=== PATIENT | female | born 1940 | race Caucasian/White ===

== ENCOUNTER 2019-02-14 05:44 | Day surgery (SDC) | payer MEDICARE, OTHER, MEDICAID ==
[2019-02-14] VITALS (12 sets, daily range): BP systolic 133–175; BP diastolic 60–88
[~2019-02-14] VITALS: Ht 165.1 cm; Wt 100.0 kg
[2019-02-14] MEDS ORDERED: MORP60TA77 PO (06:23)
[2019-02-14] MEDS ORDERED: diltiazem PO (06:28)
[2019-02-14] MEDS ORDERED: morphine PO (06:31)
[2019-02-14] MEDS ORDERED: lactulose PO (06:32)
[2019-02-14] MEDS ORDERED: zofran PO (06:33)
[2019-02-14] MEDS ORDERED: diphenhydrAMINE 50 mg/ml inj ONE (06:55)
[2019-02-14] MEDS ORDERED: MIDAZolam 5mg/5ml vial ONE ×2 (06:55→08:38)
[2019-02-14] MEDS ORDERED: fentaNYL/PF 50MCG/1 ML 2ML syringe ONE ×2 (06:55→08:38)
[2019-02-14] MEDS ORDERED: LIDOcaine Viscous 15ml cup ONE (06:56)
[2019-02-14] MEDS ORDERED: glucagon, human recombinant 1mg kit ONE (06:56)
[2019-02-14] MEDS ORDERED: iohexol 300 MG/1 ML 50ml polymer ONE ×3 (06:56→08:37)
[2019-02-14] MEDS ORDERED: levoFLOXACIN-Levaquin 500mg/D5 100 ML IV ONE (08:03)
[2019-02-14 10:04] LABS: BASOPHILS % (AUTO) 0.6 % (0-1); EOSINOPHILS # (AUTO) 0.1 X10'3 (0-0.9); EOSINOPHILS % (AUTO) 0.8 % (0-6); HEMOGLOBIN 10.8 g/dl (12.0-16.0); LYMPHOCYTES # (AUTO) 0.8 X10'3 (1.1-4.8); LYMPHOCYTES % (AUTO) 11.7 % (21-51); MEAN CORPUSCULAR HEMOGLOBIN 27.1 PG (27.0-31.0); MEAN CORPUSCULAR HGB CONC 32.8 g/dL (33.0-36.5); MEAN CORPUSCULAR VOLUME 82.6 FL (78-98); MEAN PLATELET VOLUME 8.4 FL (7.4-10.4); MONOCYTES # (AUTO) 0.5 X10'3 (0-0.9); MONOCYTES % (AUTO) 7.6 % (2-12); NEUTROPHILS # (AUTO) 5.1 X10'3 (1.8-7.7); NEUTROPHILS % (AUTO) 79.3 % (42-75); PLATELET COUNT 201 X10'3 (140-440); RED BLOOD COUNT 3.99 X10'6 (4.20-5.60); WHITE BLOOD COUNT 6.4 X10'3 (4.5-11.0)
[2019-02-14 10:16] LABS: ALANINE AMINOTRANSFERASE 24 U/L (12-78); ALBUMIN 2.5 G/DL (3.4-5.0); ALBUMIN/GLOBULIN RATIO 0.7 (1.1-1.5); ALKALINE PHOSPHATASE 114 IU/L (46-116); ANION GAP 3 (8-16); ASPARTATE AMINO TRANSFERASE 47 U/L (10-37); BILIRUBIN,TOTAL 0.7 MG/DL (0.1-1.0); BLOOD UREA NITROGEN 11 MG/DL (7-18); BUN/CREATININE RATIO 10.9 (6.6-38.0); CALCIUM 8.3 MG/DL (8.5-10.1); CHLORIDE 104 MMOL/L (99-107); CREATININE 1.01 MG/DL (0.40-0.90); GLUCOSE 133 MG/DL (70-104); POTASSIUM 4.2 MMOL/L (3.5-5.1); SODIUM 139 MMOL/L (135-145); TOTAL PROTEIN 6.3 G/DL (6.4-8.2); eGFR 53 ML/MIN
== END 2019-02-14 11:12 | disposition home or self-care (01) ==
LOC: GI LAB 05:44
PROVIDERS: ATTEND Internal Medicine Gastroenterology
DX: C24.0 Malignant neoplasm of extrahepatic bile duct (principal); Z79.899 Other long term (current) drug therapy; Z88.2 Allergy status to sulfonamides
CPT/HCPCS: 36415; 43276; 80053; 85025; 99152; 99153; C1726; C1769; C1773; J1200; J1610; J1956; J2250; J3010; J7040; Q9967; 43277; A4620; G0500

== ENCOUNTER 2019-04-17 14:43 | Emergency (ER) | payer MEDICARE, MEDICAID, OTHER ==
[~2019-04-17] VITALS: Ht 165.1 cm; Wt 98.2 kg
[~2019-04-17 14:43] MED LIST: DILT90TA2 PO; FLUO10CA30 PO; LACT10SO PO; LORA-268 PO; MORP15TA PO; MORP60TA77 PO; NA P133E4 RC; NALO4SPR NS; ONDA-103 PO; TOPI25TA49 PO
[2019-04-17 14:51] VITALS: BP 135/80
== END 2019-04-17 15:39 | disposition home or self-care (01) ==
LOC: ER 14:43
DX: S70.362A Insect bite (nonvenomous), left thigh, initial encounter (principal); L02.416 Cutaneous abscess of left lower limb; I10 Essential (primary) hypertension; E11.9 Type 2 diabetes mellitus without complications; G89.29 Other chronic pain; F17.200 Nicotine dependence, unspecified, uncomplicated; Z86.14 Personal history of Methicillin resistant Staphylococcus aureus infection; Z98.890 Other specified postprocedural states; Z88.2 Allergy status to sulfonamides; Z91.048 Other nonmedicinal substance allergy status; Z79.899 Other long term (current) drug therapy; W57.XXXA Bitten or stung by nonvenomous insect and other nonvenomous arthropods, initial encounter; Y93.89 Activity, other specified; Y92.89 Other specified places as the place of occurrence of the external cause; Y99.8 Other external cause status
CPT/HCPCS: 99284